=== PATIENT | male | born 1960 | race Caucasian/White ===

== ENCOUNTER 2017-02-11 14:15 | Emergency (ER) | payer MEDICARE, OTHER ==
[~2017-02-11] VITALS: Ht 190.5 cm; Wt 100.0 kg
[~2017-02-11 14:15] MED LIST: ARIP1TAB11 PO; FENO130C PO; LOVA20TA PO; SYNT88TA PO; TRAZ100T4 PO; ZYPR5TAB PO
[2017-02-11 18:40] VITALS: BP 136/86; PULSE 80; RESP 18; O2SAT 97
--- NOTE | 2017-02-11 18:41 | PD ---
HPI Chief Complaint: Psychiatric Symptoms Time Seen by Provider: 18:38 Travel History International Travel<30 days: No Contact w/Intl Traveler<30days: No Traveled to known affect area: No History of Present Illness HPI 56-year-old male presents to emergency department via local police under the Barrett act. Patient is threatening suicidal acts consisting of cutting his wrist and jumping in the river. Patient also threatened to kill someone else with a knife. Patient has a history of taking lithium which he has not been taking. He denies any medical issues or problems at this time. Patient refuses to have vital signs are labs drawn at this time. He has no known drug allergies. PFSH Past Medical History Depression: Yes Diabetes: No Diminished Hearing: No Tetanus Vaccination: Unknown Past Surgical History Abdominal Surgery: Yes (hernia repair) Social History Alcohol Use: No Tobacco Use: No Substance Use: No Allergies-Medications (Allergen,Severity, Reaction): Coded Allergies: No Known Allergies (Unverified , 02/11/17) Reported Meds & Prescriptions Reported Meds & Active Scripts Active No Active Prescriptions or Reported Medications Review of Systems ROS Limitations: Uncooperative Except as stated in HPI: all other systems reviewed are Neg General / Constitutional: No: Fever Eyes: No: Visual changes HENT: No: Headaches Cardiovascular: No: Chest Pain or Discomfort Respiratory: No: Shortness of Breath Gastrointestinal: No: Abdominal Pain Genitourinary: No: Dysuria Musculoskeletal: No: Pain Skin: No Rash Neurologic: No: Weakness Psychiatric: No: Depression Endocrine: No: Polydipsia Hematologic/Lymphatic: No: Easy Bruising Physical Exam Narrative GENERAL: Patient appears normal gait distress, seated comfortably and drinking coffee on the bed. SKIN: Warm and dry. Normal color. Normal turgor. No signs of rash. HEAD: Atraumatic. Normocephalic. EYES: Pupils equal and round. No scleral icterus. No injection or drainage. ENT: No nasal bleeding or discharge. Mucous membranes pink and moist. Pharynx is clear. Airway is patent. NECK: Trachea midline. Supple. CARDIOVASCULAR: Regular rate and rhythm. RESPIRATORY: No accessory muscle use. Clear to auscultation. Breath sounds equal bilaterally. MUSCULOSKELETAL: Extremities without clubbing, cyanosis, or edema. No obvious deformities. NEUROLOGICAL: Awake and alert. No obvious cranial nerve deficits. Motor grossly within normal limits. Five out of 5 muscle strength in the arms and legs. Normal speech. PSYCHIATRIC: Appropriate mood and affect; insight and judgment normal. Data Data Orders Psych Screen (02/11/17 15:13) MDM Medical Decision Making Medical Screen Exam Complete: Yes Emergency Medical Condition: Yes Differential Diagnosis Barrett act. Suicidal ideation. Homicidal ideation. Narrative Course Patient is medically stable at time of exam. Patient has refused vital signs and medical labs at this time. Patient is medically cleared for psychiatric evaluation. Diagnosis Primary Impression: Medical clearance for psychiatric admission Additional Impression: Suicidal ideation Scripts No Active Prescriptions or Reported Meds Condition: Stable Suhas Shrestha Feb 11, 2017 18:41
[2017-02-11 22:00] VITALS: BP 119/66; PULSE 82; RESP 18; TEMP 97.9; O2SAT 99
[2017-02-12 02:16] VITALS: BP 131/79; PULSE 72; RESP 16; TEMP 97.2; O2SAT 96
[2017-02-12 06:16] VITALS: BP 121/86; PULSE 100; RESP 18; TEMP 97.3; O2SAT 97
[2017-02-12 09:19] VITALS: BP 130/90; PULSE 98; RESP 20; O2SAT 98
[2017-02-12] MEDS ORDERED: ALUMINUM/MAGNESIUM/SIMETH 30 ML CUP PO ONE (10:00)
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
--- NOTE | 2017-02-13 08:13 | EKG ---
Date Performed: 02/12/2017 Time Performed: 09:44:08 PTAGE: 56 years EKG: Sinus rhythm INFERIOR MYOCARDIAL INFARCTION ABNORMAL ECG PREVIOUS TRACING : 03/22/1993 17.32 DOCTOR: Omar Christianson Interpretating Date/Time 02/13/2017 08:06:21
== END 2017-02-12 11:39 | disposition home or self-care (01) ==
LOC: NEPJ 14:15
DX: R45.851 Suicidal ideations (principal); R94.31 Abnormal electrocardiogram [ECG] [EKG]
CPT/HCPCS: 93005; 99284